=== PATIENT | male | born 1980 | race Caucasian/White ===

== ENCOUNTER → 2017-12-17 15:18 | Outpatient (CLI) | payer OTHER, SELFPAY ==
[2017-12-17 16:20] LABS: Add Manual Diff / Slide Review NO; Basophils Percent Auto 0.5 % (0-2); Eosinophils Percent Auto 1.1 % (2-4); Lymphocytes Percent Auto 19.2 % (25-40); Mean Corpuscular HGB Conc 35.8 % (30-36); Mean Corpuscular Hemoglobin 28.8 PG (26-34); Mean Corpuscular Volume 80.5 fL (80-100); Monocytes Percent Auto 6.2 % (3-14); Neutrophils Absolute Auto 7400 /uL (3000-5900); Platelet Count 274 X10^3/uL (150-400); Red Blood Cell Count 5.22 X10^6/uL (4.5-5.9); Red Cell Distribution Width 13.4 % (11.6-14.8); White Blood Cell Count 10.1 X10^3/uL (4.5-11.0)
[2017-12-17 16:25] LABS: HEMOLYSIS < 15 (0-50); Potassium 3.9 mmol/L (3.4-5.1)
[2017-12-17 16:26] LABS: Alanine Aminotransferase 38 IU/L (21-72); Albumin 4.4 g/dL (3.5-5.0); Albumin Globulin Ratio 1.7 (1.0-2.8); Alkaline Phosphatase 70 U/L (38-126); Aspartate Aminotransferase 31 IU/L (17-59); BUN Creatinine Ratio 24.3 (6-22); Bilirubin Total 0.9 mg/dL (0.2-1.3); Blood Urea Nitrogen 17 mg/dL (9-20); Calcium 9.5 mg/dL (8.4-10.2); Carbon Dioxide 27 mmol/L (22-32); Chloride 103 mmol/L (98-107); Estimated Glomerular Filt Rate > 60.0 mL/min (>60); Globulin 2.6 g/dL (1.7-4.1); Glucose 118 mg/dL (70-100); Lactate Dehydrogenase 417 U/L (313-618); Sodium 141 mmol/L (137-145)
[2017-12-17 16:42] LABS: HCG Quantitative /Beta subunit < 2.39 mIU/mL (-2.40)
[2017-12-19 16:26] LABS: Alpha Fetoprotein 2.2 ng/mL (< 6.1)
[2017-12-24 15:21] VITALS: BP 157/95; PULSE 98; RESP 18; TEMP 36.2; O2SAT 98
== END ==
PROVIDERS: Family Provider Family Medicine; PCP Family Medicine; Visit Provider Nurse Practitioner Gerontology
DX: Z08 Encounter for follow-up examination after completed treatment for malignant neoplasm (principal); Z85.47 Personal history of malignant neoplasm of testis
CPT/HCPCS: 36415; 80053; 82105; 83615; 84702; 85025

== ENCOUNTER 2017-12-24 14:59 | Oncology outpatient (ONC) | payer OTHER, SELFPAY ==
[2017-12-24 15:31] VITALS: BP 157/95; PULSE 98; RESP 18; TEMP 36.2; O2SAT 98
--- NOTE | 2017-12-24 15:48 | ONC.APRN.PN ---
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 He received postoperative adjuvant chemotherapy. 1. Classic seminoma in a 5.1 x 4.3 x 3.5-cm left-sided testicular mass, status post orchiectomy on the left, 02/24/2014. PET/CT, 03/20/2014, showing several left-sided para-aortic nodes with increased uptake. Whole body bone scan negative. Final staging: T1 N1 M0, stage IIA. 2. Postoperative etoposide/cisplatin initiated 04/03/2014. Last cycle 06/05/2014 through 06/09/2014. Now 6 months out from completion. 3. Elevated beta-HCG preoperatively to 38, normal less than 5, with AFP normal and LDH 728. Those were on 02/22/2013 with surgery 02/24/2014. LDH normal as per 03/08/2014. On 08/06/2014, the beta-HCG was 2 and AFP normal. Several elevations of LDH corresponded to leukocytosis with injection of Neulasta, and those returned to normal. Raad presents today for routine surveillance. He has no complaints whatsoever on exam today. Overall he has been feeling well. He has not been sick during the past year. 06/12/2017 he had a surveillance CT scan which was very reassuring. No findings to suggest metastases. No findings to suggest recurrence of disease. Entire exam was unremarkable. He continues to work in construction. Activity tolerance is good, no new pain no new lumps or bumps. Nu urinary issues, BM are also normal. Appetite good, weight is stable. No recent illnesses or infections. Past Medical History The patient's past medical history is significant for: Laparoscopic cholecystectomy in August 2013 prior partial amputation of left fifth digit reattached Left ankle surgery No diabetes Patient has been noted to be hypertensive which led to the concern about the renal type bruit. Home Medications and Allergies Home Medications Medication Instructions Recorded Confirmed Type naproxen sodium [Aleve] 12/24/17 History Allergies Allergy/AdvReac Type Severity Reaction Status Date / Time No Known Allergies Allergy Mild Unverified 07/01/17 13:04 SEASONAL GRASSES Allergy Unknown Uncoded 07/01/17 13:04 Exam Vital signs: Last Vital Signs Temp 97.2 F L 10/04/18 15:31 Pulse 98 H 12/24/17 15:31 Resp 18 12/24/17 15:31 BP 157/95 H 12/24/17 15:31 Pulse Ox 98 12/24/17 15:31 - Constitutional positive no acute distress, positive average body habitus - Routine HEENT Exam Eye: Present: conjunctivae pink. Absent: conjunctival icterus, scleral injection ENT: Present: mucous membranes moist, oropharynx clear - Routine Neck Exam Present: supple. Absent: lymphadenopathy - Routine Chest/Breast/Axilla Exam Axillae: Absent: lymphadenopathy, mass, tenderness - Routine Respiratory Exam Present: Clear to auscultation bilaterally. Absent: rales, rhonchi, wheezes - Routine Cardiovascular Exam Present: RRR, S1, S2. Absent: murmur, gallop, rubs, JVD - Routine Abdominal Exam Present: soft, normoactive bowel sounds. Absent: tenderness, distended, organomegaly, mass - Routine Extremities Exam Absent: edema, calf tenderness - Routine Skin Exam Present: intact, normal turgor. Absent: rash - Routine Neurological Exam Present: alert, oriented X3 - Routine Psychiatric Exam Present: normal affect Results - Imaging Additional studies: Procedures Incision with removal of foreign body or device from skin and subcutaneous tissue (07/13/14) Insertion of totally implantable vascular access device [VAD] (04/13/14) Intraoperative cholangiogram (09/16/13) Laparoscopic cholecystectomy (09/16/13) Unilateral orchiectomy (02/24/14) Assessment and Plan (1) Malignant neoplasm of testis Onset Date: 08/31/15 Current visit: No Status: None he patient is a 37 year old Male who is being seen in the clinic 12/24/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 He received postoperative adjuvant chemotherapy. Reassuringly on exam today no clinical signs or symptoms to suggest disease recurrence. CBC, CMP, LDH, AFP, beta HCG remain unremarkable. Per NCCN guidelines with stage IIA pure seminoma testicular cancer no further routine imaging, only when clinically indicated. This was reviewed with the patient and his spouse. They verbalize understanding. Return to clinic in 6 months time for provider visit, CBC, CMP, LDH, AFP, beta HCG.
== END 2017-12-25 12:00 ==
LOC: ONC 14:59
PROVIDERS: Family Provider Family Medicine; PCP Family Medicine; Visit Provider Nurse Practitioner Gerontology
DX: Z08 Encounter for follow-up examination after completed treatment for malignant neoplasm (principal); Z85.47 Personal history of malignant neoplasm of testis
CPT/HCPCS: 99214

== ENCOUNTER → 2018-06-23 16:04 | Outpatient (CLI) | payer OTHER, SELFPAY ==
[2018-06-23 17:31] LABS: Add Manual Diff / Slide Review NO; Basophils Absolute Auto 0 /uL (0-100); Basophils Percent Auto 0.4 % (0-2); Eosinophils Absolute Auto 100 /uL (0-450); Hematocrit 44.9 % (41-53); Hemoglobin 15.6 g/dL (13.5-17.5); Lymphocytes Absolute Auto 2300 /uL (1100-4500); Lymphocytes Percent Auto 22.7 % (25-40); Mean Corpuscular HGB Conc 34.7 % (30-36); Mean Corpuscular Hemoglobin 28.3 PG (26-34); Mean Corpuscular Volume 81.5 fL (80-100); Monocytes Absolute Auto 800 /uL (0-900); Neutrophils Absolute Auto 6900 /uL (1500-7000); Neutrophils Percent Auto 67.9 % (50-75); Platelet Count 298 X10^3/uL (150-400); Red Cell Distribution Width 13.4 % (11.6-14.8); White Blood Cell Count 10.2 X10^3/uL (4.5-11.0)
[2018-06-23 17:35] LABS: Alanine Aminotransferase 49 IU/L (21-72); Albumin 4.7 g/dL (3.5-5.0); Alkaline Phosphatase 76 U/L (38-126); Aspartate Aminotransferase 34 IU/L (17-59); Bilirubin Total 0.5 mg/dL (0.2-1.3); Blood Urea Nitrogen 16 mg/dL (9-20); Calcium 9.6 mg/dL (8.4-10.2); Carbon Dioxide 26 mmol/L (22-32); Chloride 102 mmol/L (98-107); Estimated Glomerular Filt Rate > 60.0 mL/min (>60); Globulin 2.4 g/dL (1.7-4.1); Glucose 84 mg/dL (70-100); HEMOLYSIS < 15 (0-50); Lactate Dehydrogenase 441 U/L (313-618); Potassium 4.3 mmol/L (3.4-5.1); Sodium 138 mmol/L (137-145); Total Protein 7.1 g/dL (6.3-8.2)
[2018-06-23 17:49] LABS: HCG Quantitative /Beta subunit < 2.39 mIU/mL (-2.40)
[2018-06-26 15:39] LABS: Alpha Fetoprotein 2.1 ng/mL (< 6.1)
== END ==
PROVIDERS: Visit Provider Internal Medicine Hematology & Oncology
DX: C62.90 Malignant neoplasm of unspecified testis, unspecified whether descended or undescended (principal)
CPT/HCPCS: 36415; 80053; 82105; 83615; 84702; 85025

== ENCOUNTER → 2018-12-16 07:27 | Outpatient (CLI) | payer OTHER, SELFPAY ==
--- NOTE | 2018-12-16 08:17 | DI.CT.S_ITS ---
PROCEDURE: CT ABDOMEN PELVIS W CON INDICATIONS: testicular cancer surveillance TECHNIQUE: After the administration of oral and intravenous contrast, 5 mm thick sections acquired from the diaphragms to the symphysis. 5 mm thick coronal and sagittal reformats were performed. For radiation dose reduction, the following was used: automated exposure control, adjustment of mA and/or kV according to patient size. COMPARISON: [facility], CT, CHEST/ABD/PEL WITH CONTRAST, 05/30/2016, 16:13. [facility], CT, CHEST/ABD/PEL WITH CONTRAST, 07/27/2015, 16:09. [facility], CT, CHEST/ABD/PEL WITH CONTRAST, 12/08/2014, 16:33. [facility], [place], PET/CT SKULL BASE TO MID THIGH, 08/25/2014, 9:51. [facility], CT, CHEST/ABD/PEL WITH CONTRAST, 06/12/2017, 15:57. FINDINGS: Image quality: Excellent. ABDOMEN: Lung bases: A 3 mm subpleural nodule is unchanged. A 2 mm nodule in the right middle lobe is also stable. Heart size is normal. Solid organs: Liver is normal in size and enhancement. Gallbladder is surgically absent. Biliary system is non-dilated. Pancreas enhances normally. Spleen is prominent in size. No adrenal nodules. Kidneys are normal in size and enhancement, without hydronephrosis. There is 3 mm nonobstructive right renal calculus in the superior pole. Peritoneum and bowel: Stomach, small bowel, and colon loops are normal in caliber and wall thickness. No free fluid or air. Nodes and vessels: No retroperitoneal or mesenteric adenopathy. Aorta and inferior vena cava are normal in caliber. Miscellaneous: No ventral hernias. PELVIS: Genitourinary: Bladder wall thickness is normal. Miscellaneous: No inguinal hernias or adenopathy. Bones: No suspicious bony lesions. No vertebral body compression fractures. IMPRESSION: 1. No findings to suggest recurrent or metastatic disease. 2. Stable small lung nodules. 3. A 3 mm nonobstructive right renal calculus. Dictated by: Carlos Blankenship M.D. on 12/16/2018 at 17:18 Approved by: Carlos Blankenship M.D. on 12/16/2018 at 18:15
[2018-12-16 09:00] LABS: Add Manual Diff / Slide Review NO; Basophils Absolute Auto 0 /uL (0-100); Basophils Percent Auto 0.4 % (0-2); Eosinophils Absolute Auto 200 /uL (0-450); Eosinophils Percent Auto 2.2 % (2-4); Hematocrit 46.6 % (41-53); Hemoglobin 16.4 g/dL (13.5-17.5); Lymphocytes Absolute Auto 1800 /uL (1100-4500); Lymphocytes Percent Auto 25.6 % (25-40); Mean Corpuscular HGB Conc 35.2 % (30-36); Mean Corpuscular Hemoglobin 28.8 PG (26-34); Mean Corpuscular Volume 81.8 fL (80-100); Monocytes Absolute Auto 600 /uL (0-900); Monocytes Percent Auto 8.7 % (3-14); Neutrophils Absolute Auto 4400 /uL (1500-7000); Neutrophils Percent Auto 63.1 % (50-75); Platelet Count 286 X10^3/uL (150-400); Red Cell Distribution Width 13.1 % (11.6-14.8)
[2018-12-16 09:14] LABS: Alanine Aminotransferase 49 IU/L (21-72); Albumin 4.6 g/dL (3.5-5.0); Albumin Globulin Ratio 1.6 (1.0-2.8); Alkaline Phosphatase 73 U/L (38-126); Aspartate Aminotransferase 39 IU/L (17-59); BUN Creatinine Ratio 21.4 (6-22); Blood Urea Nitrogen 15 mg/dL (9-20); Calcium 9.7 mg/dL (8.4-10.2); Carbon Dioxide 29 mmol/L (22-32); Chloride 101 mmol/L (98-107); Estimated Glomerular Filt Rate > 60.0 mL/min (>60); Globulin 2.8 g/dL (1.7-4.1); Glucose 93 mg/dL (70-100); HEMOLYSIS 16 (0-50); Lactate Dehydrogenase 407 U/L (313-618); Potassium 4.2 mmol/L (3.4-5.1); Total Protein 7.4 g/dL (6.3-8.2)
[2018-12-16 09:15] LABS: Sodium 141 mmol/L (137-145)
[2018-12-16 09:30] LABS: HCG Quantitative /Beta subunit < 2.39 mIU/mL (-2.40)
[2018-12-18 15:14] LABS: Alpha Fetoprotein 2.6 ng/mL (< 6.1)
== END ==
LOC: CT 07:28 → LAB 07:29
PROVIDERS: Visit Provider Internal Medicine Hematology & Oncology
DX: C62.90 Malignant neoplasm of unspecified testis, unspecified whether descended or undescended (principal)
CPT/HCPCS: 36415; 74177; 80053; 82105; 83615; 84702; 85025; Q9967

== ENCOUNTER → 2018-12-22 15:34 | Outpatient (CLI) | payer OTHER, SELFPAY ==
--- NOTE | 2018-12-22 15:35 | DI.MRI.S_ITS ---
PROCEDURE: MR HEAD/BRAIN WO/W CON INDICATIONS: headache TECHNIQUE: Noncontrast axial T1 spin echo, axial T2 fast spin echo, sagittal and axial FLAIR, coronal T2 fast spin echo, axial gradient echo, axial diffusion and ADC through the brain. After the administration of contrast, axial and coronal 3D VIBE or T1 spin echo with fat saturation through the brain. COMPARISON: None. FINDINGS: Image quality: Excellent. CSF Spaces: Basal cisterns are patent. No extra-axial fluid collections. Ventricles are normal in size and shape. Brain: No midline shift. No intracranial bleeds or masses. Incidental partially empty sella appearance, nonspecific finding. No abnormal intracranial enhancement. The brainstem appears normal. Diffusion-weighted images demonstrate no acute ischemic insults. No chronic ischemic insults. Normal intravascular flow voids are present. Skull and face: Calvarial marrow is normal in signal. Orbits appear normal. Sinuses: Sinuses and mastoids appear clear. IMPRESSION: No acute intracranial signal abnormality or abnormal enhancement. No evidence of acute ischemia. Dictated by: Ramses Harkins M.D. on 12/22/2018 at 16:46 Approved by: Ramses Harkins M.D. on 12/22/2018 at 16:55
== END ==
PROVIDERS: Visit Provider Internal Medicine Hematology & Oncology
DX: C62.90 Malignant neoplasm of unspecified testis, unspecified whether descended or undescended (principal); R51 Headache
CPT/HCPCS: 70553; A9579

== ENCOUNTER 2020-04-15 09:34 | Emergency (ER) | payer OTHER, SELFPAY ==
[2020-04-15] VITALS (8 sets, daily range): BP systolic 157–227; BP diastolic 80–110; PULSE 74–98; RESP 16; TEMP 36.4; O2SAT 97–99; BMI 33.9
--- NOTE | 2020-04-15 09:49 | ED_ITS ---
HPI - Male Genitourinary General Chief complaint: Urogenital-Male Stated complaint: poss kidney stone Time Seen by Provider: 04/15/20 09:47 Source: patient and family ( at bedside) Mode of arrival: Ambulatory Limitations: no limitations History of Present Illness HPI Narrative: This is a 39-year-old male who comes to the emergency department with right flank pain radiating towards the front and inguinal area. Patient states started Thursday, it was initially intermittent but becoming constant. Patient states that it has become more uncomfortable. He has not had any fevers, no chills, no nausea or vomiting. He has had normal bowel movements with no melena or hematochezia. He has noticed frequency he has not had a sensation of dysuria. Occasional urgency. He has not appreciated any hematuria. Patient states that he was told he had a kidney stone in the right kidney in the past. He has not passed kidney stones previously. Patient has a history of seminoma after a left orchiectomy was treated with chemotherapy and completed his treatment 5 years prior. He denies any other medical issues. No surgeries besides orchidectomy on the left and cholecystectomy. No tobacco, occasional alcohol, no illicit. Related Data Home Medications Medication Instructions Recorded Confirmed naproxen sodium [Aleve] 220 mg PRN PRN 12/24/17 09/01/19 acetaminophen [Tylenol Extra 1,000 mg PO Q6H PRN 12/27/18 09/01/19 Strength] Previous Rx's Medication Instructions Recorded hydrocodone-acetaminophen [Kerrick] 1 tab PO Q6H PRN #10 tab 04/15/20 ondansetron 4 mg PO Q6H PRN #10 tab 04/15/20 tamsulosin [Flomax] 0.4 mg PO DAILY #7 cap 04/15/20 Allergies Allergy/AdvReac Type Severity Reaction Status Date / Time No Known Allergies Allergy Mild Unverified 07/01/17 13:04 SEASONAL GRASSES Allergy Unknown Uncoded 07/01/17 13:04 Review of Systems Review of Systems ROS Unobtainable: All systems reviewed & are unremarkable except as noted in HPI and below Patient History Surgical History (Updated 04/15/20 @ 09:59 by Roberta Nunez DO) History of orchiectomy, unilateral Social History (Reviewed 04/15/20 @ 09:59 by REYNA Rojo Smoking Status: Never smoker Smoking Status: Never smoker alcohol intake frequency: 0-2 drinks per day Substance Use Type: does not use Exam Narrative Exam Narrative: GENERAL: Alert and oriented x three, well-nourished, well- appearing male in moderate distress. Patient is more comfortable standing and moving about. He has difficulty finding position of comfort. HEENT: Head normocephalic, atraumatic, EOMI, pupils reactive, face symmetric, m oist mucous membranes NECK: Supple, full range of motion CARDIOVASCULAR: Regular rate and rhythm without murmurs, rubs or gallops. RESPIRATORY: Breath sounds equal bilaterally, no wheezes rales or rhonchi. ABDOMEN: Soft, nontender. Normoactive bowel sounds all 4 quadrants. No guarding or rebound, rigidity, no mass : No CVA tenderness EXTREMITIES: Normal range of motion, no clubbing or edema. Neurovascularly intact NEUROLOGICAL: Cranial nerves II through XII grossly intact. Moving all extre mities SKIN: Warm, dry, no petechiae, no rashes or lesions. Initial Vital Signs Initial Vital Signs: Vital Signs Pulse Rate 93 H 04/15/20 09:40 Pulse Oximetry 99 04/15/20 09:40 Course Orders Ordered: Discontinued Medications Hydrocodone Bitart/Acetaminophen (Hydrocodone/Acet 5/325 Tablet) 1 tab PO NOW ONE Stop: 04/15/20 11:50 Last Admin: 04/15/20 11:53 Dose: 1 tab Documented by: PRIETO Sodium Chloride (Normal Saline 0.9%) 1,000 mls @ 1,000 mls/hr IV BOLUS ONE Stop: 04/15/20 10:54 Last Infusion: 04/15/20 11:37 Dose: 0 mls/hr Documented by: Admin: 04/15/20 10:03 Dose: 1,000 mls/hr Documented by: PRIETO Ketorolac Tromethamine (Ketorolac 60 Mg/2 Ml Vial) 15 mg IV NOW ONE Stop: 04/15/20 09:56 Last Admin: 04/15/20 10:06 Dose: 15 mg Documented by: PRIETO Tamsulosin HCl (Tamsulosin 0.4 Mg Capsule) 0.4 mg PO NOW ONE Stop: 04/15/20 11:50 Last Admin: 04/15/20 11:53 Dose: 0.4 mg Documented by: MMINOR Reevaluation(s) Reevaluation #1: patient feels more comfortable but still present after Toradol, defers additional medication. Patient states pain has moved more anterior suprapubic area. Reviewed labs with patient. CT results pending. Time: 10:36 Reevaluation #2: Patient continues to feel improved but still still has some discomfort. Patient plan to do a dose of Flomax as well as Kerrick here in the department. Patient was given referral to Ortho, strainer as well as prescription for Flomax, Kerrick and Zofran as needed. 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 His blood pressure has also improved here in the department as his pain has improved. Time: 11:55 Vital Signs Vital signs: Vital Signs - 8 hr 04/15/20 11:00 04/15/20 11:01 04/15/20 11:30 Pulse Rate 74 83 86 Respiratory Rate 16 Blood Pressure 163/93 H 162/80 H Pulse Oximetry 97 98 98 04/15/20 11:56 Pulse Rate 85 Respiratory Rate Blood Pressure 157/83 H Pulse Oximetry 99 MDM - Male Genitourinary Lab Data Attestation: I reviewed the patient's lab results. Result diagrams: 04/15/20 09:45 04/15/20 09:45 Labs: Lab Results 04/15/20 04/15/20 04/15/20 Range/Units 09:45 09:45 09:55 WBC 9.7 (4.5-11.0) X10^3/uL RBC 6.12 H (4.5-5.9) X10^6/uL Hgb 17.3 (13.5-17.5) g/dL Hct 49.6 (41-53) % MCV 81.1 (80-100) fL MCH 28.2 (26-34) PG MCHC 34.8 (30-36) % RDW 12.9 (11.6-14.8) % Plt Count 320 (150-400) X10^3/uL Neut % (Auto) 66.4 (50-75) % Lymph % (Auto) 19.9 L (25-40) % [place] % (Auto) 11.7 (3-14) % Eos % (Auto) 1.4 L (2-4) % Baso % (Auto) 0.6 (0-2) % Neut # (Auto) 6400 (7073-3257) /uL Lymph # (Auto) 1900 (1711-7417) /uL [place] # (Auto) 1100 H (0-900) /uL Eos # (Auto) 100 (0-450) /uL Baso # (Auto) 100 (0-100) /uL Sodium 139 (137-145) mmol/L Potassium 4.1 (3.4-5.1) mmol/L Chloride 103 (98-107) mmol/L Carbon Dioxide 31 (22-32) mmol/L BUN 18 (9-20) mg/dL Creatinine 1.01 (0.66-1.25) mg/dL Estimated GFR > 60.0 (>60) mL/min BUN/Creatinine Ratio 17.8 (6-22) Glucose 115 H (70-100) mg/dL Calcium 9.9 (8.4-10.2) mg/dL Urine RBC 5-10/hpf H (0-5/HPF) Urine WBC 0-1/hpf (0-5/HPF) Ur Squamous Epith Cells 0-1 /hpf (0-5/HPF) Urine Bacteria None seen (None) Ur Culture Indicated? Cult not indicated Urine Dip Bedside Urine Glucose Negative Bedside Urine Bilirubin - Negative Bedside Urine Ketone - Negative Urine Specific [place] 1.030 Bedside Urine Occult Blood +++ Bedside Urine pH 6 Bedside Urine Protein + 30 Bedside Urine Urobilinogen - Negative Bedside Urine Nitrite - Negative Bedside Urine Leukocytes - Negative Esterase Imaging Data CT scan - abdomen/pelvis: Radiologist's Impression: [address] [id number] Scan ReportSigned Patient: Titi Danielle [facility]#: [id number]: 1980Acct:[id number]/Sex: 39 / MDate of Service: 04/15/20Loc: EDAccession Number: [id number] Procedure: CT kidney ureter bladder (KUB) Ordering Provider: Roberta Nunez D.O. PROCEDURE: CT KIDNEY URETER BLADDER (KUB) INDICATIONS: right flank pain, ? kidney stone, hx seminoma 5 yrs ago on L TECHNIQUE: Noncontrast 5 mm thick sections acquired from the diaphragms to the symphysis. 5 mm thick coronal and sagittal reformats were then performed. For radiation dose reduction, the following was used: automated exposure control, adjustment of mA and/or kV according to patient size. COMPARISON: None. FINDINGS: Image quality: Excellent. Lung bases: Lung bases are clear. Multiple 3-4 mm solid lung base nodules within the lung bases. Heart size is normal. Urinary system: Kidneys are normal in size. There is right perinephric inflammation. There is moderate hydronephrosis. There is dilation of the right ureter. There is a 4 mm calcification within the distal right ureter approximately 4 cm from the UVJ. The left ureter is normal in caliber. Additional nonobstructing right 3 mm nephrolith. Other solid organs: Liver is normal in size. Gallbladder surgically absent. Pancreas is normal in contours. Spleen is normal in size. No adrenal nodules. Peritoneum and bowel: Unenhanced bowel loops demonstrate normal wall thickness and caliber. No free fluid or air. Normal appendix. Nodes and vessels: No retroperitoneal or mesenteric adenopathy by size criteria. Aorta and inferior vena cava are normal in caliber. Abdominal wall: No ventral hernias. Pelvis: No free pelvic fluid. No inguinal hernias or adenopathy. Bones: No suspicious bony lesions. Bilateral pars defects of L5. Intervertebral disc space loss throughout the lower lumbar spine. Mild degenerative changes. No significant listhesis. No vertebral body compression fractures. IMPRESSION: 4 mm obstructing stone within the distal right ureter approximately 4 cm from the UVJ. Additional 3 mm nonobstructing right-sided nephrolith. This results in moderate hydronephrosis and perinephric inflammation. Bilateral pars defects of L5. Dictated by: Miguel Angel Li D.O. on 04/15/2020 at 9:39 Approved by: Miguel Angel Li D.O. on 04/15/2020 at 9:50 MDM Narrative Medical decision making narrative: 39-year-old male with right flank pain, patient's symptoms are consistent with kidney stone but he has had a left orchiectomy in history seminoma with chemotherapy and completed treatment 5 years prior. Labs do not show major abnormalities urine shows hematuria but no signs of infection. CT KUB, shows 4 mm kidney stone at the distal right ureter 4 cm from the UVJ. Plan for pain control, follow up with Urology, strainer. Return precautions discussed with patient. Discharge Plan Departure Patient Disposition: Home Clinical Impression: Kidney stone on right side Instructions: DI for Kidney Stones Activity Restrictions/Additional Instructions: Follow-up with urology if your symptoms have not resolved in the next 24 hours, call Thursday morning for an appointment. I would recommend continue ibuprofen 800 mg every 8 hours, if this does not adequately control your pain may take narcotic pain medication with it. You may take up to a 1000 mg every 8 hours as needed for pain, do not take Tylenol if you are taking narcotic pain medication. Do not drive, perform hazardous activities or make any major decisions while taking narcotic pain medication. You can also cause constipation I recommend taking a stool softener 1-2 times daily while taking narcotics until stools are soft and regular. Take Flomax once daily until gone. Prescription to [facility] in [place]. Return to the ER for fevers greater 100.4 F, new or rapidly worsening flank or abdominal pain, persistently vomiting, lightheadedness or passing out, black or bloody stools, inability urinate or other new or concerning symptoms. Prescriptions: New tamsulosin [Flomax] 0.4 mg capsule 0.4 mg PO DAILY Qty: 7 RF: 0 hydrocodone-acetaminophen [Kerrick] 5-325 mg tablet 1 tab PO Q6H PRN (Reason: pain) Qty: 10 RF: 0 ondansetron 4 mg tablet,disintegrating 4 mg PO Q6H PRN (Reason: nausea and vomiting) Qty: 10 RF: 0 No Action naproxen sodium [Aleve] 220 mg Tablet 220 mg PRN PRN (Reason: Pain (Scale Score 1-3)) RF: 0 acetaminophen [Tylenol Extra Strength] 500 mg Tablet 1,000 mg PO Q6H PRN (Reason: Pain (Scale Score 4-6)) RF: 0 Referrals: Yared Patel MD [Physician] -
--- NOTE | 2020-04-15 09:55 | DI.CT.S_ITS ---
PROCEDURE: CT KIDNEY URETER BLADDER (KUB) INDICATIONS: right flank pain, ? kidney stone, hx seminoma 5 yrs ago on L TECHNIQUE: Noncontrast 5 mm thick sections acquired from the diaphragms to the symphysis. 5 mm thick coronal and sagittal reformats were then performed. For radiation dose reduction, the following was used: automated exposure control, adjustment of mA and/or kV according to patient size. COMPARISON: None. FINDINGS: Image quality: Excellent. Lung bases: Lung bases are clear. Multiple 3-4 mm solid lung base nodules within the lung bases. Heart size is normal. Urinary system: Kidneys are normal in size. There is right perinephric inflammation. There is moderate hydronephrosis. There is dilation of the right ureter. There is a 4 mm calcification within the distal right ureter approximately 4 cm from the UVJ. The left ureter is normal in caliber. Additional nonobstructing right 3 mm nephrolith. Other solid organs: Liver is normal in size. Gallbladder surgically absent. Pancreas is normal in contours. Spleen is normal in size. No adrenal nodules. Peritoneum and bowel: Unenhanced bowel loops demonstrate normal wall thickness and caliber. No free fluid or air. Normal appendix. Nodes and vessels: No retroperitoneal or mesenteric adenopathy by size criteria. Aorta and inferior vena cava are normal in caliber. Abdominal wall: No ventral hernias. Pelvis: No free pelvic fluid. No inguinal hernias or adenopathy. Bones: No suspicious bony lesions. Bilateral pars defects of L5. Intervertebral disc space loss throughout the lower lumbar spine. Mild degenerative changes. No significant listhesis. No vertebral body compression fractures. IMPRESSION: 4 mm obstructing stone within the distal right ureter approximately 4 cm from the UVJ. Additional 3 mm nonobstructing right-sided nephrolith. This results in moderate hydronephrosis and perinephric inflammation. Bilateral pars defects of L5. Dictated by: Miguel Angel Li D.O. on 04/15/2020 at 9:39 Approved by: Miguel Angel Li D.O. on 04/15/2020 at 9:50
[2020-04-15] MEDS: SODIUM CHLORIDE 0.9% 1,000 ML 1000 ML IV (10:03)
[2020-04-15 10:04] LABS: Add Manual Diff / Slide Review NO; Basophils Absolute Auto 100 /uL (0-100); Basophils Percent Auto 0.6 % (0-2); Eosinophils Absolute Auto 100 /uL (0-450); Eosinophils Percent Auto 1.4 % (2-4); Hematocrit 49.6 % (41-53); Hemoglobin 17.3 g/dL (13.5-17.5); Lymphocytes Absolute Auto 1900 /uL (1100-4500); Lymphocytes Percent Auto 19.9 % (25-40); Mean Corpuscular HGB Conc 34.8 % (30-36); Mean Corpuscular Hemoglobin 28.2 PG (26-34); Mean Corpuscular Volume 81.1 fL (80-100); Monocytes Absolute Auto 1100 /uL (0-900); Monocytes Percent Auto 11.7 % (3-14); Neutrophils Absolute Auto 6400 /uL (1500-7000); Neutrophils Percent Auto 66.4 % (50-75); Platelet Count 320 X10^3/uL (150-400); Red Blood Cell Count 6.12 X10^6/uL (4.5-5.9); Red Cell Distribution Width 12.9 % (11.6-14.8); White Blood Cell Count 9.7 X10^3/uL (4.5-11.0)
[2020-04-15] MEDS: KETOROLAC 60 MG/2 ML VIAL 15 MG IV (10:06)
--- NOTE | 2020-04-15 10:12 | PC.NURSE ---
pt had stone found in R kidney approx 5 years ago but had no issues with it at that time. Pt here with severe R flank pain started yesterday. Pt urinating ok but feels urge to urinate immediately after voiding
[2020-04-15 10:16] LABS: Bacteria Urine None Seen
[2020-04-15 10:18] LABS: BUN Creatinine Ratio 17.8 (6-22); Blood Urea Nitrogen 18 mg/dL (9-20); Calcium 9.9 mg/dL (8.4-10.2); Carbon Dioxide 31 mmol/L (22-32); Chloride 103 mmol/L (98-107); Estimated Glomerular Filt Rate > 60.0 mL/min (>60); Glucose 115 mg/dL (70-100); HEMOLYSIS < 15 (0-50); Potassium 4.1 mmol/L (3.4-5.1); Sodium 139 mmol/L (137-145)
[2020-04-15 10:23] LABS: RBC Urine 5-10/HPF (0-5/HPF); Squamous Epithelial Cell Urine 0-1 /HPF (0-5/HPF); WBC Urine 0-1/HPF (0-5/HPF)
[2020-04-15 10:24] LABS: Culture Indicated Urine Cult Not Indicated
[2020-04-15] MEDS: HYDROCODONE/ACET 5/325 TABLET 1 TAB PO (11:53)
[2020-04-15] MEDS: TAMSULOSIN 0.4 MG CAPSULE PO (11:53)
== END 2020-04-15 12:04 | disposition home or self-care (01) ==
PROVIDERS: Emergency Provider Emergency Medicine
DX: N20.0 Calculus of kidney (principal); R35.0 Frequency of micturition; Z87.442 Personal history of urinary calculi; Z90.79 Acquired absence of other genital organ(s); Z85.47 Personal history of malignant neoplasm of testis
CPT/HCPCS: 36415; 74176; 80048; 81003; 81015; 85025; 96361; 96374; 99283; 99284; J1885

== ENCOUNTER → 2021-03-22 14:49 | Outpatient (CLI) | payer OTHER, SELFPAY | PROVIDERS: Visit Provider Nurse Practitioner Family | DX: R39.15 Urgency of urination (principal) | CPT/HCPCS: 87086 ==